=== PATIENT | female | born 1990 | race Caucasian/White ===

== ENCOUNTER 2020-05-14 06:51 | Emergency (ER) | payer OTHER ==
[~2020-05-14] VITALS: Ht 167.6 cm; Wt 54.4 kg
[2020-05-14 07:00] VITALS: BP_SYST 112
== END 2020-05-14 07:10 | disposition home or self-care (01) ==
LOC: SED 06:51
DX: H10.89 Other conjunctivitis (principal)
CPT/HCPCS: 99283

== ENCOUNTER 2020-06-26 12:49 | Emergency (ER) | payer OTHER ==
[~2020-06-26] VITALS: Ht 167.6 cm; Wt 54.4 kg
[2020-06-26 13:14] VITALS: BP_SYST 122
[2020-06-26 14:41] VITALS: BP_SYST 122
== END 2020-06-26 14:42 | disposition home or self-care (01) ==
LOC: SED 12:49
DX: J32.9 Chronic sinusitis, unspecified (principal)
CPT/HCPCS: 99283

== ENCOUNTER 2022-03-18 22:17 | Emergency (ER) | payer MEDICAID, OTHER ==
[~2022-03-18] VITALS: Ht 167.6 cm; Wt 56.7 kg
[2022-03-18 22:30] VITALS: BP_SYST 104
--- NOTE | 2022-03-18 22:35 | NUR ---
Patient to ER HB1 for evaluation. Side rails up.
--- NOTE | 2022-03-18 22:43 | NUR ---
Pt came from home with c/o tooth ache on the left side that radiates to ear. Pt reports pain is a 7/10. Pt says she has been using ibuporfen at home for the pain but it does not help. A&O x 4, ambulatory, and follows simple commands. Reports no past medical history. Safety precautions in place.
--- NOTE | 2022-03-18 23:09 | NUR ---
Dr. Horn at bedside with patient for evaluation.
[2022-03-18] MEDS ORDERED: ACET1TAB93 PO ×3 (23:21→23:56)
[2022-03-18] MEDS ORDERED: PENI500T PO (23:21)
[2022-03-18] MEDS ORDERED: PENI250T2 PO (23:53)
[2022-03-19 00:11] VITALS: BP_SYST 112
--- NOTE | 2022-03-19 00:12 | NUR ---
Patient given written and verbal discharge instructions and verbalizes understanding. ER MD discussed with patient the results and treatment provided. Patient in stable condition. ID arm band removed. Rx of ACETAMINOPPHEN WITH CODEINE given. Patient educated on pain management and to follow up with PMD. Pain Scale . Opportunity for questions provided and answered. Medication side effect fact sheet provided.
== END 2022-03-19 00:12 | disposition home or self-care (01) ==
LOC: SED 22:17
DX: K08.89 Other specified disorders of teeth and supporting structures (principal)
CPT/HCPCS: 99283

== ENCOUNTER 2022-07-14 10:02 | Emergency (ER) | payer MEDICAID ==
[~2022-07-14] VITALS: Ht 167.6 cm; Wt 59.9 kg
[2022-07-14 10:02] VITALS: BP_SYST 120
[~2022-07-14 10:02] MED LIST: ACET1TAB93 PO; PENI250T2 PO
[2022-07-14 11:52] VITALS: BP_SYST 120
== END 2022-07-14 11:53 | disposition home or self-care (01) ==
LOC: SED 10:02
DX: M25.572 Pain in left ankle and joints of left foot (principal); Z79.899 Other long term (current) drug therapy
CPT/HCPCS: 99283

== ENCOUNTER 2022-08-27 12:49 | Emergency (ER) | payer MEDICAID ==
[~2022-08-27] VITALS: Ht 167.6 cm; Wt 60.3 kg
--- NOTE | 2022-08-27 13:47 | NUR ---
PT BIB BOYFRIEND FROM HOME. CC UNCONTROLLABLE PAIN 10/10 RIGHT SIDE OF JAWLINE RELATED TO TOOTH ACHE. PT HAS SLIGHT SWELLING TO THE RIGHT SIDE. PT STATES HAS A DENTAL VISIT SCHEDULED FOR NEXT WEEK. PT IS AAOX3, SKIN INTACT, DENIES HEADACHE. DENIES PAST MEDICAL HISTORY.
[2022-08-27 13:50] VITALS: BP_SYST 124
--- NOTE | 2022-08-27 13:50 | NUR ---
Patient to ER bed [facility] to [facility] for evaluation. Side rails up. Report given to MICHELINE ANN.
--- NOTE | 2022-08-27 14:20 | NUR ---
ER at bedside examining patient.
[2022-08-27] MEDS ORDERED: ACETAMINOPHEN 500 MG TABLET PO ONE (14:30)
[2022-08-27] MEDS ORDERED: IBUPROFEN 600 MG TABLET PO ONE (14:30)
[2022-08-27] MEDS ORDERED: HYDROcodone/ACETAMIN 5-325 MG TAB (NORCO/ VICODIN) PO ONE (14:30)
[2022-08-27] MEDS ORDERED: IBUP-1969 PO ×3 (14:32→17:27)
[2022-08-27] MEDS ORDERED: AUG875 PO ×3 (14:32→17:27)
[2022-08-27] MEDS ORDERED: HYDR-3917 PO ×3 (14:32→17:27)
[2022-08-27 15:57] VITALS: BP_SYST 124
--- NOTE | 2022-08-27 15:57 | NUR ---
Patient given written and verbal discharge instructions and verbalizes understanding. ER MD discussed with patient the results and treatment provided. Patient in stable condition. ID arm band removed. Opportunity for questions provided and answered. Medication side effect fact sheet provided.
== END 2022-08-27 15:57 | disposition home or self-care (01) ==
LOC: SED 12:49
DX: K04.7 Periapical abscess without sinus (principal); Z79.899 Other long term (current) drug therapy
CPT/HCPCS: 99284

== ENCOUNTER 2023-01-17 16:55 | Emergency (ER) | payer BC, MEDICAID ==
[~2023-01-17] VITALS: Ht 167.6 cm; Wt 61.2 kg
[~2023-01-17 16:55] MED LIST changes: +AUG875 PO; +HYDR-3917 PO; +IBUP-1969 PO
[2023-01-17 17:07] VITALS: BP_SYST 126
--- NOTE | 2023-01-17 17:13 | NUR ---
Patient triaged and placed in waiting room. C/O left elbow pain S/P fall at skating ring. VSS. Accompanied by self, awaiting available bed, and MD notified of need for MSE.
--- NOTE | 2023-01-17 17:59 | NUR ---
ER at triage examining patient.
[2023-01-17] MEDS ORDERED: IBUPROFEN 600 MG TABLET PO ONE (18:00)
--- NOTE | 2023-01-17 18:00 | NUR ---
pt off to radiology for Xray
[2023-01-17] MEDS ORDERED: PROPOFOL 200MG/ 20ML VIAL (DIPRIVAN) IV ONE ×2 (18:15→19:00)
--- NOTE | 2023-01-17 18:21 | NUR ---
Placed in room 07 . Placed on laboratory monitor, blood pressure machine and pulse oximeter. To gown for exam. Side rails up.
--- NOTE | 2023-01-17 18:24 | NUR ---
CONSENT FOR PROCEDURE AND ANESTHESIA COMPLETED WITH MD AND PATIENT WITH THIS RN AT BEDSIDE.
--- NOTE | 2023-01-17 18:39 | NUR ---
PLEASE SEE MODERATE SEDATION RECORD.
[2023-01-17] MEDS ORDERED: NAPR-1172 PO (19:05)
[2023-01-17 19:11] VITALS: BP_SYST 102
--- NOTE | 2023-01-17 19:11 | NUR ---
Patient given written and verbal discharge instructions and verbalizes understanding. ER MD discussed with patient the results and treatment provided. Patient in stable condition. ID arm band removed. IV catheter removed intact and dressing applied, no active bleeding. Rx of NAPROSYN given. Patient educated on pain management and to follow up with PMD. Pain Scale 0/10 Opportunity for questions provided and answered. Medication side effect fact sheet provided.
--- NOTE | 2023-01-17 19:39 | NUR ---
Dusty maddox in [place] - 01/17/23 at 1946 by [email or web address] PLEASE SEE MODERATE SEDATION RECORD.
== END 2023-01-17 19:11 | disposition home or self-care (01) ==
LOC: SED 16:55
DX: S53.125A Posterior dislocation of left ulnohumeral joint, initial encounter (principal); Z79.899 Other long term (current) drug therapy; V00.131A Fall from skateboard, initial encounter; Y93.51 Activity, roller skating (inline) and skateboarding; Y92.89 Other specified places as the place of occurrence of the external cause; Y99.8 Other external cause status
CPT/HCPCS: 99285; 24640; 73070; 99152; J2704

== ENCOUNTER 2023-08-02 16:09 | Emergency (ER) | payer BC, MEDICAID ==
[~2023-08-02] VITALS: Ht 167.6 cm; Wt 59.0 kg
[~2023-08-02 16:09] MED LIST changes: -ACET1TAB93 PO; +NAPR-1172 PO
[2023-08-02 16:14] VITALS: BP_SYST 123; PULSE 88; RESP 18; TEMP 98.3; O2SAT 98
[2023-08-02] MEDS ORDERED: BACITRACIN 1 GM OINT TP ONE (17:45)
[2023-08-02] MEDS ORDERED: LIDOCAINE 1% 10 MG/ML, 20 ML MDV INJ ONE (17:45)
[2023-08-02] MEDS ORDERED: DIPHTH,PERTUSS(ACELL),TET VAC 0.5 ML VIAL (Tdap) I.M. ONE (17:45)
[2023-08-02] MEDS ORDERED: IBUPROFEN 800 MG TABLET ONE (18:05)
[2023-08-02] MEDS ORDERED: IBUPROFEN 800 MG TABLET PO ONE (18:15)
[2023-08-02 18:52] VITALS: BP_SYST 118; PULSE 85; RESP 16; TEMP 98.2; O2SAT 100
== END 2023-08-02 18:49 | disposition home or self-care (01) ==
LOC: SED 16:09
DX: S91.312A Laceration without foreign body, left foot, initial encounter (principal); Z79.899 Other long term (current) drug therapy; W25.XXXA Contact with sharp glass, initial encounter; Y93.89 Activity, other specified; Y92.89 Other specified places as the place of occurrence of the external cause; Y99.8 Other external cause status
CPT/HCPCS: 99283; 73630; 90715; 90471; 12002; J2001